=== PATIENT | male | born 1965 | race Caucasian/White ===

== ENCOUNTER 2021-06-12 06:57 | Outpatient (CLI) | payer BC, SELFPAY ==
--- NOTE | 2021-06-22 13:00 | WPDHOMESLEEP ---
Sleep Study - Home Unattended Date of Study: 06/12/21 <Janelle Penaloza DO - Last Filed: 06/22/21 13:20> Ordering Provider: Giovanna Lindsay MD <Janelle Penaloza, DO - Last Filed: 06/22/21 13:20> Interpreting Provider: Janelle Penaloza DO <Janelle Penaloza DO - Last Filed: 06/22/21 13:20> Home Sleep Study Type: Apnea Link Air <Janelle Penaloza DO - Last Filed: 06/22/21 13:20> Height: 1.8 m <Janelle Penaloza DO - Last Filed: 06/22/21 13:20> Weight: 90.718 kg <Janelle Penaloza DO - Last Filed: 06/22/21 13:20> Body Mass Index: 27.8 <Janelle Penaloza DO - Last Filed: 06/22/21 13:20> Neck Circumference (inches): 17.25 <Janelle Penaloza DO - Last Filed: 06/22/21 13:20> [place]: 10 <Janelle Penaloza DO - Last Filed: 06/22/21 13:20> Reason for Sleep Study The patient has difficulty staying asleep. Patient has excessive daytime somnolence. <Janelle Penaloza DO - Last Filed: 06/22/21 13:20> Sleep History The patient is a 56-year-old male with generalized anxiety disorder, depression, hypertension, polycythemia and hyperlipidemia that had a sleep test ordered by his primary care doc for sleep disturbances. The patient had a sleep study in May 2008 that showed a AHI of 1.9. The patient states that he has difficulty staying asleep but wakes up very tired. He has the symptoms almost every night for the past 2+ years. The patient states that he constantly awakens from sleep short of breath. He will frequently awaken at night with heartburn, belching or cough. He frequently snores loud enough others complain. He really has trouble sleeping when he has a cold. He denies waking up gasping for breath throughout the night. He frequently has breathing problems at night they were observed by others. He denies sweating excessively at night. He denies heart palpitations throughout the night. He rarely falls asleep during the day as well as driving. The patient denies sleep paralysis, cataplexy and hypnagogic / hypnopompic hallucinations. He states that he has difficulty working due to sleepiness. He rarely has nightmares. He frequently feels sad depressed and anxious. He often notices parts of his body jerk. He often kicks at night. He frequently experiences crawling and aching feelings in his legs. He often has leg pain throughout the night. He denies grinding his teeth during sleep or waking up with dry pain. He is frequently polyp by pain throughout the day but never awakened by pain throughout the night. He constantly wakes feeling stiff in the morning with sore and achy muscles. patient goes to bed at 10:00 p.m. on the weekdays and around 10-11 p.m. on the weekend. It typically takes him 30 minutes to fall asleep. He wakes up 1-2 times per night and it takes him about an hour to fall asleep. When he wakes up during the night he will often toss and turn. He wakes up between 6 and 7:00 a.m. on both the weekdays and weekends. He gets 8 and 9 hours of sleep per night. He currently lives with his . His work does not rotate his shift. He denies consuming any caffeinated beverages 2 hours prior to bedtime. He does not engage in physical exercise before bedtime. He will watch television before falling asleep. He does not take naps during the afternoon or evening. He denies tobacco on recreational drug use. He does consume 2-3 caffeinated beverages per day. He has 1-2 alcoholic beverages per week. <Janelle Penaloza DO - Last Filed: 06/22/21 13:20> [facility] Past Medical History Medical History: Medical History Anxiety Hypertension <Janelle Penaloza DO - Last Filed: 06/22/21 13:20> Family History Family History: Family History Mother Family history of congestive heart failure Sibling Pat
[2021-06-22 13:20] VITALS: BMI 27.8
== END 2021-06-13 10:18 | disposition home or self-care (01) ==
LOC: ANHCSM 06:59
PROVIDERS: PCP Physician Assistant; Visit Provider Internal Medicine
DX: G47.10 Hypersomnia, unspecified (principal); R06.83 Snoring; G47.33 Obstructive sleep apnea (adult) (pediatric)
CPT/HCPCS: 95806

== ENCOUNTER 2021-07-12 08:16 | Outpatient (CLI) | payer BC, SELFPAY ==
--- NOTE | 2021-07-31 15:00 | WPDSLEEPSTUD ---
Sleep Study Date of Study: 07/12/21 <Janelle Penaloza DO - Last Filed: 07/31/21 16:07> Ordering Provider: Giovanna Pena*MD <Janelle Penaloza, DO - Last Filed: 07/31/21 16:07> Interpreting Physician: Janelle Penaloza DO <Janelle Penaloza DO - Last Filed: 07/31/21 16:07> Sleep Study Type: CPAP Titration <Janelle Penaloza DO - Last Filed: 07/31/21 16:07> Height: 1.8 m <Janelle Penaloza DO - Last Filed: 07/31/21 16:07> Weight: 92.079 kg <Janelle Penaloza DO - Last Filed: 07/31/21 16:07> Body Mass Index: 28.3 <Janelle Penaloza DO - Last Filed: 07/31/21 16:07> Neck Circumference (inches): 15.5 <Janelle Penaloza DO - Last Filed: 07/31/21 16:07> [place]: 10 <Janelle Penaloza DO - Last Filed: 07/31/21 16:07> Reason for Sleep Study The patient had an HSAT done on 06/12/2021 that showed an AHI of 6.5 and a central apnea index of 1.3. He had a large number of central apneas so it was recommended that he have a PAP Titration. <Janelle Penaloza DO - Last Filed: 07/31/21 16:07> Sleep History The patient is a 56-year-old male with generalized anxiety disorder, depression, hypertension, polycythemia and hyperlipidemia that had a sleep test ordered by his primary care doc for sleep disturbances. The patient had a sleep study in May 2008 that showed a AHI of 1.9. The patient states that he has difficulty staying asleep but wakes up very tired. He has the symptoms almost every night for the past 2+ years. The patient states that he constantly awakens from sleep short of breath. He will frequently awaken at night with heartburn, belching or cough. He frequently snores loud enough others complain. He really has trouble sleeping when he has a cold. He denies waking up gasping for breath throughout the night. He frequently has breathing problems at night they were observed by others. He denies sweating excessively at night. He denies heart palpitations throughout the night. He rarely falls asleep during the day as well as driving. The patient denies sleep paralysis, cataplexy and hypnagogic / hypnopompic hallucinations. He states that he has difficulty working due to sleepiness. He rarely has nightmares. He frequently feels sad depressed and anxious. He often notices parts of his body jerk. He often kicks at night. He frequently experiences crawling and aching feelings in his legs. He often has leg pain throughout the night. He denies grinding his teeth during sleep or waking up with dry pain. He is frequently polyp by pain throughout the day but never awakened by pain throughout the night. He constantly wakes feeling stiff in the morning with sore and achy muscles. The patient goes to bed at 10:00 p.m. on the weekdays and around 10-11 p.m. on the weekend. It typically takes him 30 minutes to fall asleep. He wakes up 1-2 times per night and it takes him about an hour to fall asleep. When he wakes up during the night he will often toss and turn. He wakes up between 6 and 7:00 a.m. on both the weekdays and weekends. He gets 8 and 9 hours of sleep per night. He currently lives with his . His work does not rotate his shift. He denies consuming any caffeinated beverages 2 hours prior to bedtime. He does not engage in physical exercise before bedtime. He will watch television before falling asleep. He does not take naps during the afternoon or evening. He denies tobacco on recreational drug use. He does consume 2-3 caffeinated beverages per day. He has 1-2 alcoholic beverages per week. <Janelle Penaloza DO - Last Filed: 07/31/21 16:07> [facility] Past Medical History Medical History: Medical History Anxiety Hypertension <Janelle Penaloza DO - Last Filed: 07/31/21 16:07> Family History Family History: Family History (Reviewed 07/31/21 @ 15:03 by Minal
[2021-07-31 15:02] VITALS: BMI 28.3
== END 2021-07-13 08:11 | disposition home or self-care (01) ==
LOC: ANHCSM 08:17
PROVIDERS: PCP Internal Medicine; Visit Provider Internal Medicine
DX: G47.33 Obstructive sleep apnea (adult) (pediatric) (principal)
CPT/HCPCS: 95811